=== PATIENT | female | born 1980 | race Caucasian/White ===

== ENCOUNTER 2016-07-27 16:23 | Emergency (ER) | payer OTHER ==
[~2016-07-27] VITALS: Ht 160 cm; Wt 65.3 kg
[2016-07-27 16:45] VITALS: BP 137/83
--- NOTE | 2016-07-27 17:41 | ED.ADGEN ---
Past History Past Medical History: No Pertinent History Past Surgical History: No Surgical History Alcohol Use: Occasionally Drug Use: None Adult General Chief Complaint Chief Complaint Cough, neck stiffness HPI HPI Patient is a 36-year-old female with multiple medical complaints. Patient reports dry cough, nasal congestion, postnasal drip, cough keeping her awake at night for the past week. Patient's been treated with Mucinex and albuterol inhaler, symptoms have not improved. Patient denies fever, chills, nausea vomiting and sweats. No wheezing or history of asthma. Patient also reports secondary neck pain and stiffness. Patient states she was treated via physical therapist earlier this week and reports increased neck pain and stiffness with decreased range of motion following the treatment. Patient was treated by stretching. Her proctectomy adjustments were performed. No other acute symptoms or complaints. Review of Systems Review of Systems Review symptoms as per history of present illness. All other review symptoms are negative. Allergies Allergies Allergies Coded Allergies Type Severity Reaction Last Updated Verified No Known Drug Allergies 07/27/16 No Physical Exam Physical Exam Constitutional: Well developed, well nourished, no acute distress, non-toxic appearance. HENT: Normocephalic, atraumatic, bilateral external ears normal, oropharynx moist, no oral exudates, nose clear rhinorrhea. Eyes: PERRL. Neck: Supple, restricted lateral rotation and flexion and extension secondary to pain. Cardiovascular:Heart rate regular rhythm, no murmur. Lungs & Thorax: Bilateral breath sounds clear to auscultation. Abdomen: Bowel sounds normal, soft, no tenderness, no masses, no pulsatile masses. Skin: Warm, dry, no erythema, no rash. Current Patient Data Vital Signs Vital Signs Date Time Temp Pulse Resp B/P (MAP) Pulse Ox O2 Delivery O2 Flow Rate FiO2 07/27/16 16:45 98.5 104 16 98 Room Air EKG EKG [] Radiology/Procedures Radiology/Procedures [] Course & Med Decision Making Course & Med Decision Making Pertinent Labs and Imaging studies reviewed. (See chart for details) [Patient with bronchitis, likely viral, neck stiffness secondary to musculoskeletal strain. We'll continue supportive treatment with the follow-up as needed. Return precautions reviewed.] Final Impression Final Impression [1. Acute bronchitis 2. Cervical strain] Problems: Dragon Disclaimer Dragon Disclaimer This electronic medical record was generated, in whole or in part, using a voice recognition dictation system. LOLY EATON DO Jul 27, 2016 17:41
== END 2016-07-27 17:45 | disposition home or self-care (01) ==
LOC: ER 16:23
DX: S16.1XXA Strain of muscle, fascia and tendon at neck level, initial encounter (principal); J20.9 Acute bronchitis, unspecified; X58.XXXA Exposure to other specified factors, initial encounter; Y93.89 Activity, other specified; Y99.8 Other external cause status; Y92.89 Other specified places as the place of occurrence of the external cause
CPT/HCPCS: 99283